=== PATIENT | female | born 1995 | race Caucasian/White ===

== ENCOUNTER 2021-11-22 09:53 | Emergency (ER) | payer MEDICAID ==
[~2021-11-22] VITALS: Ht 160 cm; Wt 100.7 kg
[2021-11-22] MEDS ORDERED: IPRATROPIUM/ALBUTEROL SULFATE 3 ML SOLUTION IH ONE ×2 (10:00→11:17)
[2021-11-22] MEDS ORDERED: SOLU-MEDROL 125MG VIAL IVP ONE (11:00)
[2021-11-22 12:26] VITALS: BP 117/78
[2021-11-22] MEDS ORDERED: ALBU18HF7 IH (12:53)
[2021-11-22] MEDS ORDERED: PRED5TAB PO (12:54)
== END 2021-11-22 13:05 | disposition home or self-care (01) ==
LOC: EDH 09:53
DX: J45.909 Unspecified asthma, uncomplicated (principal)
CPT/HCPCS: 71045; 81025; 94640; 96374; 99284; J2930